=== PATIENT | female | born 1930 | race Caucasian/White ===

== ENCOUNTER 2020-06-11 17:06 | Inpatient (IN) | payer MEDICARE ==
[~2020-06-11] VITALS: Ht 170.2 cm; Wt 82.6 kg
--- NOTE | 2020-06-11 17:20 | NUR ---
KATARZYNA BELL FRM HOME FOR MEDICAL CLEARANCE. ON 5150 FOR DTS/GD. PATIENT A/OX3, BREATHING EVEN AND UNLABORED, NO SOB NOTED, NEEDS ATTENDED. KEPT COMFORTABLE.
[2020-06-11 17:35] LABS: BASOPHILS % (AUTO) 0.5 % (0.0-2.0); EOSINOPHILS % (AUTO) 0.4 % (0.0-6.0); HEMATOCRIT 40 % (33-45); HEMOGLOBIN 13.4 g/dL (11.5-14.8); LYMPHOCYTES # (AUTO) 1.3 /CMM (0.8-4.8); LYMPHOCYTES % (AUTO) 17.9 % (20.0-44.0); MEAN CORPUSCULAR HGB CONC 33 g/dl (31.0-36.0); MEAN CORPUSCULAR VOLUME 91 fL (82-100); MONOCYTES # (AUTO) 0.6 /CMM (0.1-1.30); MONOCYTES % (AUTO) 8.7 % (2.0-12.0); NEUTROPHILS # (AUTO) 5.2 /CMM (1.8-8.9); NEUTROPHILS % (AUTO) 72.5 % (43.0-81.0); PLATELET COUNT (AUTO) 243 /CMM (150-450); RED BLOOD CELL COUNT(AUTO) 4.42 MIL/uL (4.0-5.2); WHITE BLOOD COUNT (AUTO) 7.1 K/uL (4.3-11.0)
[2020-06-11 17:45] LABS: CALCIUM, SERUM 9.1 mg/dL (8.5-10.1); CARBON DIOXIDE 26 mmol/L (21-32); CHLORIDE 104 mmol/L (98-107); CREATININE 1.3 mg/dL (0.6-1.3); GLUCOSE 101 mg/dL (74-106); SODIUM SERUM 142 mmol/L (136-145); UREA NITROGEN, BLOOD 38 mg/dL (7-18)
[2020-06-11 17:51] LABS: ACETAMINOPHEN 3 ug/ml (10-30); ALANINE AMINOTRANSFERASE 20 U/L (12-78); ALBUMIN 3.7 g/dL (3.4-5.0); ALCOHOL, BLOOD < 3 mg/dL (0-0); ALKALINE PHOSPHATASE 70 U/L (46-116); ASPARTATE AMINOTRANSFERASE 21 U/L (15-37); BILIRUBIN,DIRECT 0.2 mg/dL (0.0-0.2); BILIRUBIN,TOTAL 0.7 mg/dL (0.2-1.0); TOTAL PROTEIN, SERUM 7.1 g/dL (6.4-8.2)
--- NOTE | 2020-06-11 17:57 | NUR ---
CALLED NET DEVELOPER CONTRACT FOR EVAL. NO ANSWER. LEFT MESSAGE.
--- NOTE | 2020-06-11 18:06 | NUR ---
LISSETH SHIRLEY # [phone] (SON)
[2020-06-11 18:15] LABS: BILIRUBIN,URINE Negative (NEGATIVE); COLOR,URINE YELLOW (YELLOW); LEUKOCYTE ESTERASE ,URINE Trace (NEGATIVE); NITRITE, URINE Negative (NEGATIVE); PH,URINE 5.5 (5.0-8.0); PROTEIN,URINE 30 mg/dl (NEGATIVE); UGLUCOSE Negative (NEGATIVE); UROBILINOGEN,URINE 0.2 EU/dL (0.2)
[2020-06-11 18:20] LABS: BACTERIA,URINE Few /HPF (None Seen); SQUAMOUS EPITHELIAL CELL,UR Few /HPF (None Seen)
--- NOTE | 2020-06-11 18:42 | NUR ---
bed [id number]
--- NOTE | 2020-06-11 18:59 | NUR ---
ATTEMPTED TO CALL FOR REPORT, WAS TOLD TO CALL BACK LATER AFTER SHIFT REPORT.
--- NOTE | 2020-06-11 20:01 | NUR ---
REPORT GIVEN TO FAA RN FOR LENARD.
--- NOTE | 2020-06-11 20:45 | NUR ---
patient taken up to assigned room for LENARD.
[2020-06-11] MEDS ORDERED: FURO20TA4 PO (21:10)
[2020-06-11] MEDS ORDERED: SACU1TAB PO (21:11)
[2020-06-11] MEDS ORDERED: CARV12.52 PO (21:13)
[2020-06-11] MEDS ORDERED: ACETAMINOPHEN 325 MG TABLET PO PRN (21:30)
[2020-06-11] MEDS ORDERED: MAG HYDROX/AL HYDROX/SIMETH 30 ML UDC PO PRN (21:30)
[2020-06-11] MEDS ORDERED: MAGNESIUM HYDROXIDE 30 ML UDC PO PRN (21:30)
[2020-06-11] MEDS ORDERED: BLOOD SUGAR DIAGNOSTIC 1 EACH STRIP IN ONE (22:00)
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
[2020-06-12 04:07] VITALS: BP 150/68
--- NOTE | 2020-06-12 06:52 | NUR ---
GPS RN CLOSING NOTES: PATIENT IN ROOM AWAKE, A/O X2. PATIENT SLEPT 7HRS THIS SHIFT. NO S/S OF DISTRESS. RESPIRATION EVEN AND UNLABORED WITH EQUAL RISE AND FALL OF THE CHEST ON ROOM AIR. ALL PATIENT CARE NEEDS HAVE BEEN MET ANTICIPATED. BED IN LOWEST POSITION AND LOCKED WITH SIDE RAILS UP X2. WILL CONTINUE TO MONITOR FOR SAFETY, MOOD AND BEHAVIOR AND ENDORSE TO AM SHIFT
[2020-06-12 08:00] VITALS: BP 157/61
[2020-06-12] MEDS: FUROSEMIDE 20 MG TABLET PO SCH (08:37)
[2020-06-12] MEDS: CARVEDILOL 12.5 MG TABLET PO SCH ×2 (08:38→16:36)
[2020-06-12 16:00] VITALS: BP 134/61
--- NOTE | 2020-06-12 18:07 | NUR ---
GPS RN NOTE PATIENT HAS MEDICATION ENTRESTO, PHARMACY IS ASKING FOR THE FAMILY TO PROVIDE IT, SON MADE AWARE, WILL BRING IT TONIGHT.
[2020-06-12 20:59] VITALS: BP 138/83
[2020-06-12] MEDS: TEMAZEPAM 7.5 MG CAPSULE PO PRN (21:14)
[2020-06-13 06:26] LABS: BASOPHILS % (AUTO) 0.5 % (0.0-2.0); EOSINOPHILS % (AUTO) 3.2 % (0.0-6.0); HEMATOCRIT 36 % (33-45); LYMPHOCYTES # (AUTO) 1.6 /CMM (0.8-4.8); LYMPHOCYTES % (AUTO) 31.4 % (20.0-44.0); MEAN CORPUSCULAR HGB CONC 33 g/dl (31.0-36.0); MEAN CORPUSCULAR VOLUME 92 fL (82-100); MONOCYTES # (AUTO) 0.6 /CMM (0.1-1.30); MONOCYTES % (AUTO) 12.4 % (2.0-12.0); NEUTROPHILS # (AUTO) 2.6 /CMM (1.8-8.9); NEUTROPHILS % (AUTO) 52.5 % (43.0-81.0); PLATELET COUNT (AUTO) 214 /CMM (150-450); RED BLOOD CELL COUNT(AUTO) 3.91 MIL/uL (4.0-5.2)
[2020-06-13 06:49] LABS: CALCIUM, SERUM 9.1 mg/dL (8.5-10.1); CREATININE 1.1 mg/dL (0.6-1.3); POTASSIUM 3.6 mmol/L (3.5-5.1)
[2020-06-13 08:00] VITALS: BP 150/59
[2020-06-13] MEDS: CARVEDILOL 12.5 MG TABLET PO SCH ×2 (08:53→16:47)
[2020-06-13] MEDS: RIVASTIGMINE TARTRATE 1.5 MG CAPSULE PO SCH ×2 (08:53→21:39)
[2020-06-13] MEDS: risperiDONE 1 MG TABLET PO SCH ×2 (08:53→21:39)
[2020-06-13] MEDS: FUROSEMIDE 20 MG TABLET PO SCH (08:53)
--- NOTE | 2020-06-13 15:22 | NUR ---
RN-CO: Patient is confused and disorganized, cannot tell me her phone number nor son's phone number.
--- NOTE | 2020-06-13 15:23 | NUR ---
RN-CO: NO PHONE NUMBER IN THE PATIENT'S FACE SHEET TO ASK IF THE FAMILY MEMBER CAN DELIVER VALSARTAN.
[2020-06-13 16:00] VITALS: BP 121/58
[2020-06-13 20:00] VITALS: BP 146/66
[2020-06-14] MEDS: LORAZEPAM 0.5 MG TABLET PO PRN (02:11)
--- NOTE | 2020-06-14 02:14 | NUR ---
NURSES NOTES: PATIENT APPROACHED CARE DIRECTOR AND VERBALIZED BEING ANXIOUS. OFFERED HER ATIVAN MEDICATION AND PATIENT EXPRESSED WANTING TO TAKE IT. ATIVAN 0.5 MG GIVEN ORALLY A PRN MED. WILL MONITOR EFFICACY OF MED ON PATIENT.
[2020-06-14 08:00] VITALS: BP 132/57
[2020-06-14] MEDS: RIVASTIGMINE TARTRATE 1.5 MG CAPSULE PO SCH ×2 (08:18→21:17)
[2020-06-14] MEDS: FUROSEMIDE 20 MG TABLET PO SCH (08:18)
[2020-06-14] MEDS: CARVEDILOL 12.5 MG TABLET PO SCH ×2 (08:19→16:44)
[2020-06-14] MEDS: risperiDONE 1 MG TABLET PO SCH ×2 (08:19→21:17)
[2020-06-14 16:00] VITALS: BP 148/56
--- NOTE | 2020-06-14 16:37 | NUR ---
Initial Discharge Plan: The pt. currently comes from home [[id number] [place] [address]; [phone]]. Her son, Sai West [phone] is currently residing in pt.'s home to care for pt. per Sai. Per son, he is concerned that the pt. will wander off and get lost again. Sai is requesting caregiver resources & medication management for pt. SW will continue to collaborate with IDT to ensure safe & proper discharge planning.
--- NOTE | 2020-06-14 16:38 | NUR ---
Point of Contact: ELBA called the pt.'s son, Sai West [phone] to gather collateral information. Per Sai, he is originally from [place] and currently in [place] to care for pt. due to pt.'s cognitive decline. Per Sai, pt. has refused to seek medical attention. Per Sai, pt. has never seen a psychiatrist and is not on any psychotropic medications.
[2020-06-14 21:53] VITALS: BP 129/80
[2020-06-14] MEDS: TEMAZEPAM 7.5 MG CAPSULE PO PRN (23:03)
--- NOTE | 2020-06-14 23:04 | NUR ---
RN NOTES: PT. C/O INSOMNIA RESTORIL 7.5 MG POPRN GIVEN PER PT. REQUEST, WILL CONTINUE TO MONITOR.
[2020-06-15 08:00] VITALS: BP 157/71
[2020-06-15] MEDS: risperiDONE 1 MG TABLET PO SCH ×2 (08:13→21:23)
[2020-06-15] MEDS: FUROSEMIDE 20 MG TABLET PO SCH (08:13)
[2020-06-15] MEDS: CARVEDILOL 12.5 MG TABLET PO SCH ×2 (08:14→16:51)
[2020-06-15] MEDS: RIVASTIGMINE TARTRATE 1.5 MG CAPSULE PO SCH ×2 (08:36→21:23)
[2020-06-15 13:00] VITALS: BP 153/76
[2020-06-15] MEDS: LORAZEPAM 0.5 MG TABLET PO PRN (15:10)
--- NOTE | 2020-06-15 15:40 | NUR ---
gps memorandum statement clerk: psych f/u dr. boone at bedside talking to pt at this time.
[2020-06-15 20:00] VITALS: BP 137/61
[2020-06-15] MEDS: TEMAZEPAM 7.5 MG CAPSULE PO PRN (23:56)
[2020-06-16 08:00] VITALS: BP 146/74
[2020-06-16] MEDS: RIVASTIGMINE TARTRATE 1.5 MG CAPSULE PO SCH ×2 (09:17→21:26)
[2020-06-16] MEDS: FUROSEMIDE 20 MG TABLET PO SCH (09:17)
[2020-06-16] MEDS: risperiDONE 1 MG TABLET PO SCH (09:17)
[2020-06-16] MEDS: CARVEDILOL 12.5 MG TABLET PO SCH ×2 (09:17→17:42)
[2020-06-16] MEDS: AMLODIPINE BESYLATE 5 MG TABLET PO SCH (13:30)
--- NOTE | 2020-06-16 14:02 | NUR ---
Family Contact: Pt.'s son, Sai West [phone], called the SW and provided the SW with an extensive history on the pts current condition. SW then went over the discharge plan and it was discussed with the pts son that SNF would be a better option initially. Pts son stated that he is going to attempt getting conservatorship for the pt. SW will follow up with the pt.
[2020-06-16 16:00] VITALS: BP 126/66
--- NOTE | 2020-06-16 16:28 | NUR ---
COOPERATIVE,MED COMPLIANT,CONFUSED.
[2020-06-16 20:37] VITALS: BP 132/62
[2020-06-16] MEDS: risperiDONE 0.25 MG TABLET PO SCH (21:27)
[2020-06-16] MEDS: TEMAZEPAM 7.5 MG CAPSULE PO PRN (22:20)
--- NOTE | 2020-06-16 22:22 | NUR ---
GPS RN NOTES: PATIENT REQUESTED FOR SLEEP MEDICATION. RESTORIL 7.5MG/1CAP GIVEN PO PRN ORDERED. WILL CONTINUE TO MONITOR.
--- NOTE | 2020-06-17 06:57 | NUR ---
GPS RN CLOSING NOTES: PATIENT IS CURRENTLY SLEEPING. PATIENT SLEPT 6HRS THIS SHIFT. NO S/S OF DISTRESS. RESPIRATION EVEN AND UNLABORED WITH EQUAL RISE AND FALL OF THE CHEST ON ROOM AIR. PATIENT WAS MED COMPLIANT THIS SHIFT. ALL PATIENT CARE NEEDS HAVE BEEN MET ANTICIPATED. BED IN LOWEST POSITION AND LOCKED WITH SIDE RAILS UP X2. WILL CONTINUE TO MONITOR FOR SAFETY, MOOD AND BEHAVIOR AND ENDORSE TO AM SHIFT.
[2020-06-17 08:00] VITALS: BP 149/63
[2020-06-17] MEDS: CARVEDILOL 12.5 MG TABLET PO SCH ×2 (08:26→16:21)
[2020-06-17] MEDS: FUROSEMIDE 20 MG TABLET PO SCH (08:27)
[2020-06-17] MEDS: AMLODIPINE BESYLATE 5 MG TABLET PO SCH (08:27)
[2020-06-17] MEDS: risperiDONE 0.25 MG TABLET PO SCH ×2 (08:27→20:44)
[2020-06-17] MEDS: RIVASTIGMINE TARTRATE 1.5 MG CAPSULE PO SCH ×2 (08:27→20:45)
--- NOTE | 2020-06-17 10:30 | NUR ---
Probable Cause Hearing: Pts [id number] hold was upheld for grave disability.
--- NOTE | 2020-06-17 11:22 | NUR ---
Family Contact: SW received a call from patient's son, Sai West, , asking if the patient's psychiatrist will be able to fill out a 'Capacity Declaration' for the patient. SW recommended for Sai to have the patient's outpatient psychiatrist fill out this form as they have a better understanding of the patient's history. Sai stated that he will follow up with patient's outpatient psychiatrist.
--- NOTE | 2020-06-17 11:30 | NUR ---
[place] Contact: Kelby Will from [facility] [phone], contacted to inquire who put the patient on a hold. ELBA provided the deputy with the clinician's name, Shante Renee LCSW.
[2020-06-17 16:00] VITALS: BP 137/56
[2020-06-17 20:22] VITALS: BP 136/72
[2020-06-17] MEDS: TEMAZEPAM 7.5 MG CAPSULE PO PRN (21:30)
--- NOTE | 2020-06-17 21:31 | NUR ---
GPS RN NOTES: PATIENT REQUESTED FOR SLEEP MEDICATION. RESTORIL 7.5MG/1CAP GIVEN PO PRN ORDERED AT 2130. WILL CONTINUE TO MONITOR.
--- NOTE | 2020-06-18 06:51 | NUR ---
GPS RN CLOSING NOTES: PATIENT IS CURRENTLY SLEEPING. PATIENT SLEPT 8HRS THIS SHIFT. PATIENT WAS MED COMPLIANT THIS SHIFT. NO S/S OF DISTRESS. RESPIRATION EVEN AND UNLABORED WITH EQUAL RISE AND FALL OF THE CHEST ON ROOM AIR. ALL PATIENT CARE NEEDS HAVE BEEN MET ANTICIPATED. BED IN LOWEST POSITION AND LOCKED WITH SIDE RAILS UP X2. WILL CONTINUE TO MONITOR FOR SAFETY, MOOD AND BEHAVIOR AND ENDORSE TO AM SHIFT.
[2020-06-18 08:00] VITALS: BP 152/81
[2020-06-18] MEDS: risperiDONE 0.25 MG TABLET PO SCH ×2 (08:45→20:26)
[2020-06-18] MEDS: CARVEDILOL 12.5 MG TABLET PO SCH ×2 (08:45→17:40)
[2020-06-18] MEDS: AMLODIPINE BESYLATE 5 MG TABLET PO SCH (08:46)
[2020-06-18] MEDS: FUROSEMIDE 20 MG TABLET PO SCH (08:46)
--- NOTE | 2020-06-18 09:00 | NUR ---
RN NOTE- PT ALERT CONFUSED MED COMPLIANT CALM ISOLATIVE AND DIRECTABLE DENIES ALL THOUGH CONFUSED PARANOID GUARDED
[2020-06-18] MEDS: RIVASTIGMINE TARTRATE 1.5 MG CAPSULE PO SCH ×2 (09:32→20:26)
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
[2020-06-18 16:00] VITALS: BP 127/65
[2020-06-18 20:08] VITALS: BP 130/63
[2020-06-18] MEDS: TEMAZEPAM 7.5 MG CAPSULE PO PRN (23:10)
[2020-06-19] MEDS: LORAZEPAM 0.5 MG TABLET PO PRN (02:10)
--- NOTE | 2020-06-19 06:48 | NUR ---
RN NOTES CALM, COOPERATIVE, RESTLESS, UNABLE TO SLEEP, GIVEN RESTORIL AND ATIVAN, TOOK ALL PM MEDS, FINALLY FELL ASLEEP TILL MORNING.
[2020-06-19 08:00] VITALS: BP 138/61
[2020-06-19] MEDS: AMLODIPINE BESYLATE 5 MG TABLET PO SCH (08:36)
[2020-06-19] MEDS: FUROSEMIDE 20 MG TABLET PO SCH (08:36)
[2020-06-19] MEDS: risperiDONE 0.25 MG TABLET PO SCH ×2 (08:36→21:14)
[2020-06-19] MEDS: RIVASTIGMINE TARTRATE 1.5 MG CAPSULE PO SCH ×2 (08:37→21:14)
[2020-06-19] MEDS: CARVEDILOL 12.5 MG TABLET PO SCH ×2 (08:37→16:16)
[2020-06-19 16:00] VITALS: BP 122/49
--- NOTE | 2020-06-19 16:20 | NUR ---
GPS RN NOTE BLOOD PRESSURE DECREASED - DID NOT GIVE COREG. (122/49, HR 65)
--- NOTE | 2020-06-19 19:30 | NUR ---
GPS RN NOTE, RECEIVED PATIENT AWAKE AND IN BED, NO S/S OR COMPLAINTS OF PAIN AT THIS TIME. PATIENT IS DISPLAYING NO S/S OF APPARENT DISTRESS AT THIS TIME. PATIENT BREATHING IS UNLABORED WITH EQUAL RISE AND FALL OF THE CHEST. PATIENT IS ALERT AND ORIENTED X 2 ON ROOM AIR WITH A SPO2 97%. PATIENT IS COMPLIANT WITH MEDICATIONS AT TIMES, PARANOID, ANXIOUS AT TIMES, NEEDY, NEEDS REDIRECTION, AND COOPERATIVE. PATIENT DENIES SUICIDAL AND HOMICIDAL IDEATIONS AT THIS TIME. PATIENT ASSISTED WITH TURNING AND REPOSITIONING Q2HR AND PRN FOR COMFORT AND CIRCULATION. PATIENT HAS NO NEEDS AT THIS TIME. PATIENT EDUCATED ON THE USE OF THE CALL AVALOS. PATIENT BED SIDE RAILS UP X 2 FOR SAFETY. PATIENT BED IS LOCKED, LOW, WITH BED ALARM ON. WILL CONTINUE TO MONITOR THIS PATIENT Q15 MINUTES WITH THE HELP OF STAFF TO MAINTAIN SAFETY.
[2020-06-19 20:27] VITALS: BP 155/60
[2020-06-20 08:00] VITALS: BP 153/67
[2020-06-20] MEDS: RIVASTIGMINE TARTRATE 1.5 MG CAPSULE PO SCH ×2 (08:44→20:58)
[2020-06-20] MEDS: FUROSEMIDE 20 MG TABLET PO SCH (08:45)
[2020-06-20] MEDS: CARVEDILOL 12.5 MG TABLET PO SCH ×2 (08:45→16:25)
[2020-06-20] MEDS: risperiDONE 0.25 MG TABLET PO SCH ×2 (08:45→20:58)
[2020-06-20] MEDS: AMLODIPINE BESYLATE 5 MG TABLET PO SCH (08:46)
[2020-06-20 16:01] VITALS: BP 159/67
[2020-06-20 20:58] VITALS: BP 162/73
[2020-06-20 22:00] VITALS: BP 142/78
[2020-06-21 08:00] VITALS: BP 148/69
[2020-06-21] MEDS: AMLODIPINE BESYLATE 5 MG TABLET PO SCH (09:35)
[2020-06-21] MEDS: RIVASTIGMINE TARTRATE 1.5 MG CAPSULE PO SCH ×2 (09:35→21:30)
[2020-06-21] MEDS: FUROSEMIDE 20 MG TABLET PO SCH (09:35)
[2020-06-21] MEDS: risperiDONE 0.25 MG TABLET PO SCH ×2 (09:35→21:30)
[2020-06-21] MEDS: CARVEDILOL 12.5 MG TABLET PO SCH ×2 (09:36→16:25)
[2020-06-21 19:43] VITALS: BP 145/55
[2020-06-21 20:00] VITALS: BP 145/55
--- NOTE | 2020-06-22 02:31 | NUR ---
RN NOTE: PATIENT IS SLEEPING COMFORTABLY AT THIS TIME, PT. IS PARANOID AT TIMES, BLAMES HER SON FOR BEING IN THE HOSPITAL. REDIRECTABLE. WILL CONTINUE TO MONITOR.
[2020-06-22 06:48] LABS: CALCIUM, SERUM 8.8 mg/dL (8.5-10.1)
[2020-06-22 08:00] VITALS: BP 153/77
[2020-06-22] MEDS: CARVEDILOL 12.5 MG TABLET PO SCH ×2 (09:19→17:00)
[2020-06-22] MEDS: AMLODIPINE BESYLATE 5 MG TABLET PO SCH (09:20)
[2020-06-22] MEDS: FUROSEMIDE 20 MG TABLET PO SCH (09:20)
[2020-06-22] MEDS: RIVASTIGMINE TARTRATE 1.5 MG CAPSULE PO SCH ×2 (09:20→21:27)
[2020-06-22] MEDS: risperiDONE 0.25 MG TABLET PO SCH ×2 (10:35→21:29)
--- NOTE | 2020-06-22 14:23 | NUR ---
SNF Referral: ELBA faxed clinicals to [facility], ([address] [place] [address]; ph: [phone], fax: [phone] ) for SNF referral.
[2020-06-22 16:00] VITALS: BP 135/57
[2020-06-22 20:00] VITALS: BP 125/55
--- NOTE | 2020-06-22 20:00 | NUR ---
NOTED MS. SHIRLEY IS HRD OF HEARING. SHE IS PLEASENT AND COOPERATIVE AT THIS TIME. SHE AMBULATES AROUND THE CORRIEDOR STEADY ON HER HER LEG.
[2020-06-22] MEDS: TEMAZEPAM 7.5 MG CAPSULE PO PRN (21:26)
--- NOTE | 2020-06-23 06:23 | NUR ---
ending notes: slept thru the night 9 hours. cooperative and pleasent. smiles when spoken to
[2020-06-23 08:00] VITALS: BP 151/61
[2020-06-23] MEDS: RIVASTIGMINE TARTRATE 1.5 MG CAPSULE PO SCH ×2 (08:27→20:58)
[2020-06-23] MEDS: CARVEDILOL 12.5 MG TABLET PO SCH ×2 (08:32→17:00)
[2020-06-23] MEDS: FUROSEMIDE 20 MG TABLET PO SCH (08:32)
[2020-06-23] MEDS: AMLODIPINE BESYLATE 5 MG TABLET PO SCH (08:33)
[2020-06-23] MEDS: risperiDONE 0.25 MG TABLET PO SCH ×2 (08:37→20:58)
--- NOTE | 2020-06-23 15:27 | NUR ---
SNF Contact: SW received a call from Hair ([phone]) from [facility] who stated that the pt was accepted to their facility.
--- NOTE | 2020-06-23 15:28 | NUR ---
Family Contact: SW called the pt's son, Sai West ([phone]), and left a voicemail stating that the pt was accepted to [facility] and will be discharged on Sunday.
[2020-06-23 16:00] VITALS: BP 125/54
[2020-06-23 21:22] VITALS: BP 135/57
[2020-06-23] MEDS: TEMAZEPAM 7.5 MG CAPSULE PO PRN (22:01)
[2020-06-24 08:00] VITALS: BP 136/56
[2020-06-24] MEDS: FUROSEMIDE 20 MG TABLET PO SCH (09:40)
[2020-06-24] MEDS: AMLODIPINE BESYLATE 5 MG TABLET PO SCH (09:41)
[2020-06-24] MEDS: RIVASTIGMINE TARTRATE 1.5 MG CAPSULE PO SCH ×2 (09:42→20:36)
[2020-06-24] MEDS: risperiDONE 0.25 MG TABLET PO SCH ×2 (09:42→20:36)
[2020-06-24] MEDS: CARVEDILOL 12.5 MG TABLET PO SCH ×2 (09:42→16:45)
--- NOTE | 2020-06-24 10:39 | NUR ---
Family Contact: SW called the pt's son, Sai West ([phone]) and notified him that the pt was accepted to [facility] and will be discharged tomorrow, 06/25/20.
[2020-06-24 16:00] VITALS: BP 134/60
--- NOTE | 2020-06-24 19:20 | NUR ---
RN NOTES: RECEIVED PATIENT INSIDE THE ROOM STANDING NEAR HER BED. NO S/S OF DISTRESS NOTED. SMILING WHEN ENGAGED TO CONVERSATION. PATIENT IS CALM. AMBULATORY.
[2020-06-24 20:27] VITALS: BP 122/58
[2020-06-24 23:36] VITALS: BP 122/58
[2020-06-25 08:00] VITALS: BP 144/68
--- NOTE | 2020-06-25 08:00 | NUR ---
RN OPENING NOTE PATIENT AWAKE IN BED. A/OX2, CALM MOOD NOTED. NO S/SX OF ACUTE RESPIRATORY DISTRESS NOTED. PATIENT REMAINS MILDLY CONFUSED. PATIENT COMPLIANT WITH MED REGIMEN..NO SI/HI/VH/AH NOTED. SAFETY PRECAUTIONS IN PLACE. WILL CONTINUE TO MONITOR Q15MIN ROUNDS FOR SAFETY AND BEHAVIOR.
[2020-06-25] MEDS: risperiDONE 0.25 MG TABLET PO SCH (08:26)
[2020-06-25] MEDS: CARVEDILOL 12.5 MG TABLET PO SCH (08:26)
[2020-06-25] MEDS: RIVASTIGMINE TARTRATE 1.5 MG CAPSULE PO SCH (08:26)
[2020-06-25] MEDS: FUROSEMIDE 20 MG TABLET PO SCH (08:26)
[2020-06-25 08:27] VITALS: BP 144/68
[2020-06-25] MEDS: AMLODIPINE BESYLATE 5 MG TABLET PO SCH (08:27)
--- NOTE | 2020-06-25 14:16 | NUR ---
Discharge Note: Pt will be discharged to [facility]) located at [address] [place] [address]; . Pt will be transported via [facility] at 3PM. Pts son, Sai ([phone]), was informed of the discharge. Upon discharge, the pt appears to be alert and oriented x3 (time, place, and self). Pt appears to be in a depressed mood and presents with a calm mood. Pt denies both suicidal and homicidal ideation as well as auditory and visual hallucinations. Pt appears to be ambulatory with an unsteady gait. Pt appears to be well groomed and appropriately dressed. Pt will continue to be under the care of her psychiatrist, Dr. Jeter, located at [address] [place] [id number]; and entry table operator, Dr. Hay, located at [id number], [place] [address]; . The choice of vendor form and multidisciplinary exit care form were done, printed, signed, and given to the patient.
--- NOTE | 2020-06-25 15:13 | NUR ---
REGISTERED NURSE BEHAVIORAL HEALTH NOTE PATIENT DISCHARGED TO [facility]. TRANSPORTATION ARRANGED WITH [employer] CUSTOMER SERVICE AGENT AND REPORT GIVEN. FACILITY REPORT GIVEN TO RADHA. FAMILY AWARE OF DISCHARGE. BELONGINGS CHECKED AND GIVEN TO TRANSPORTATION. NO SKIN ISSUES IDENTIFIED.
--- NOTE | 2020-06-25 15:18 | NUR ---
PICKER AND PACKER NOTE 89 YEAR OLD FEMALE DISCHARGED OT [facility] IN STABLE CONDITION. COMPLIANT WITH MEDICATIONS. COOPERATIVE WITH TREATMENT PLANS. PATIENT DENIES SI/HI AND INSTRUCTED TO GO TO CLOSEST ER IF DEVELOPING SI/HI. BEHAVIOR IMPROVED, PSYCHIATRIC TX PLANS MET, TX PLANS DEFERRED FOR CONTINUAL MONITORING. EDUCATED PT ABOUT AFTER CARE PLAN 9 EXITCARE0 AND COPY PROVIED. RETURNED PERSONAL BELONGINGS TO PATIENT. MEDICATIONS RECONCILED WITH DR GALINDO. REPORT GIVEN TO RADHA BAR AT [facility] FOR LENARD. PT SIGNED DISCHARGE PAPERWORK. SKIN IS INTACT. PATIENT LEFT UNIT AT 1515 VIA AMBULANCE.
--- NOTE | 2020-06-25 15:22 | NUR ---
RN NOTE PATIENT NOTED TO HAVE LOST R HEARING AID. FOUND BY RN AND GIVEN TO TRANSPORTATION.
== END 2020-06-25 15:15 | DRG 885 ==
LOC: ER 17:11 → GPS 20:19
PROVIDERS: ADMIT Psychiatry & Neurology Psychiatry; ATTEND Internal Medicine
DX: F29 Unspecified psychosis not due to a substance or known physiological condition (principal); I11.0 Hypertensive heart disease with heart failure; N17.0 Acute kidney failure with tubular necrosis; F23 Brief psychotic disorder; N39.0 Urinary tract infection, site not specified; F32.9 Major depressive disorder, single episode, unspecified; F41.9 Anxiety disorder, unspecified; I50.9 Heart failure, unspecified; F03.90 Unspecified dementia, unspecified severity, without behavioral disturbance, psychotic disturbance, mood disturbance, and anxiety; F25.9 Schizoaffective disorder, unspecified; Z73.6 Limitation of activities due to disability; M62.81 Muscle weakness (generalized); Z20.822 Contact with and (suspected) exposure to COVID-19
CPT/HCPCS: 36415; 80048-TC; 80061-TC; 80076-TC; 81001; 82962-TC; 85025-TC; 87081-TC; 97116-TC; 97530-TC; C9803; G0480